=== PATIENT | female | born 1950 | race Caucasian/White ===

== ENCOUNTER → 2023-12-13 13:52 | Outpatient (REF) | payer MEDICARE, SELFPAY | LOC: HWRAD 13:52 | PROVIDERS: ATTENDING PHYSICIAN Family Medicine | DX: Z78.0 Asymptomatic menopausal state (principal); Z12.31 Encounter for screening mammogram for malignant neoplasm of breast | CPT/HCPCS: 77063; 77067; 77080 ==

== ENCOUNTER → 2023-12-21 09:53 | Outpatient (REF) | payer MEDICARE, SELFPAY | LOC: WDC 09:53 | PROVIDERS: ATTENDING PHYSICIAN Family Medicine | DX: R92.8 Other abnormal and inconclusive findings on diagnostic imaging of breast (principal) | CPT/HCPCS: 77065 ==

== ENCOUNTER → 2023-12-29 06:41 | Outpatient (REF) | payer MEDICARE, SELFPAY ==
--- NOTE | 2023-12-29 09:06 | OID.BR.INTR ---
[facility] Breast Navigator - Initial
- -
Date of Contact: 12/29/23
Met with patient. Patient given written information on navigator services and support services available at [facility]. Will follow up as needed per protocol.
== END ==
LOC: WDC 06:41
PROVIDERS: ATTENDING PHYSICIAN Family Medicine
DX: N63.20 Unspecified lump in the left breast, unspecified quadrant (principal); R92.8 Other abnormal and inconclusive findings on diagnostic imaging of breast; R92.1 Mammographic calcification found on diagnostic imaging of breast
CPT/HCPCS: 88305; 19081; 76098; A4648

== ENCOUNTER → 2024-10-18 09:49 | Outpatient (REF) | payer MEDICARE, SELFPAY | LOC: RCS 09:49 | PROVIDERS: ATTENDING PHYSICIAN Family Medicine | DX: R94.31 Abnormal electrocardiogram [ECG] [EKG] (principal); I10 Essential (primary) hypertension; E78.00 Pure hypercholesterolemia, unspecified; I36.1 Nonrheumatic tricuspid (valve) insufficiency; I35.8 Other nonrheumatic aortic valve disorders | CPT/HCPCS: 93017; 93350 ==

== ENCOUNTER 2024-10-28 09:37 | Emergency (ER) | payer MEDICARE, SELFPAY ==
[2024-10-28 09:39] VITALS: BP 175/92
--- NOTE | 2024-10-28 11:03 | ED.GENMED ---
History of Present Illness
<Dawna Mead, JEWELRY SALES COORDINATOR - Last Filed: 10/29/24 13:28>
General
Chief Complaint: Breathing Problem
Source: patient
Exam Limitations: none
Time Seen by Provider: 10/28/24 11:02
Nursing documentation reviewed up to this point in time: agreed with
History of Present Illness
History of Present Illness:
74-year-old female history of HTN presents for 'heaviness,' shortness of breath and general weakness she has been experiencing since 10/08. On 10/08 she developed a sharp pain up under her ribs (pointing to the epigastric area), EMS was called but the
pain went away so she declined transport to hospital. Since then, she states this feeling of heaviness, shortness of breath and weakness comes and goes. She states it is worse with activity. She states at this time the pressure is 3/10 and mid
chest, nonradiating.
She did have a stress echocardiogram last week 10/18. And was told there was no change from previous
She denies N/V/D/C.
Past History
<Dawna Mead, JEWELRY SALES COORDINATOR - Last Filed: 10/29/24 13:28>
Past History
ED Past Medical History: HTN, Hypercholesterolemia and Hypothyroidism
ED Past Surgical History: Gynecological and Other (Noncontributory)
Social History
Tobacco: Non-smoker
Alcohol: Occasional
Personal:
Living: with family
Employment: Not employed
Family History
Family History: Other (Noncontributory)
Review of Systems
<Dawna Mead, JEWELRY SALES COORDINATOR - Last Filed: 10/29/24 13:28>
Review of Systems
Allergies reviewed?: Yes
Constitutional: Reports fatigue; Denies fever
Respiratory: Reports other (feels short of breath at times, worse with exertion)
Cardiac: Reports chest pain (chest 'pressure' intermittent, worse with exertion. )
ABD/GI: Denies abdominal pain, nausea or vomiting
: Reports no symptoms
Musculoskeletal: Reports no symptoms
Skin: Reports no symptoms
Phy Exam
<Dawna Mead, JEWELRY SALES COORDINATOR - Last Filed: 10/29/24 13:28>
Physical Exam
Physical Exam:
GENERAL: No acute distress. A&Ox3.
CONSTITUTIONAL: Afebrile.
EYES: clear, conjunctivae normal
ENMT: moist mucus membranes, Pharynx nl
RESPIRATORY: Regular respirations, nonlabored, lungs clear.
CARDIOVASCULAR: Regular rate and rhythm, no murmurs, no rubs.
GI: Soft, nontender, normal BS
MUSCULOSKELETAL: Moves with ease. Well perfused.
SKIN: Warm, dry, pink
PSYCH: Normal mood and affect. Well kept, interactive and appropriate
NEUROLOGIC: Awake, alert and oriented. No focal neurological deficits
Scores
<Dawna Mead, JEWELRY SALES COORDINATOR - Last Filed: 10/29/24 13:28>
Heart Failure Risk
Heart Failure Risk Score: Not Applicable
Course
<Dawna Mead, JEWELRY SALES COORDINATOR - Last Filed: 10/29/24 13:28>
Orders/Labs/Results
Orders:
Orders
10/28/24 09:41
Electrocardiogram (*1) Urgent
Reason for Study: Shortness of Breath
EKG- Treatment ONCE
10/28/24 11:18
CR Chest - 2 Views Urgent
Comment:
Reason For Exam: chest pressure, SOB
10/28/24 11:29
Comprehensive Metabolic Panel Urgent
10/28/24 11:31
Complete Blood Count/With Diff Urgent
Troponin I Urgent
10/28/24 14:50
Troponin I Urgent
Abnormal Lab Results
10/28/24 10/28/24
11:29 11:31
MCH 31.1 H pg
(27.0-31.0)
Monocytes % 9.6 H %
(1.7-9.3)
Creatinine 0.5 L mg/dL
(0.6-1.0)
10/28/24 11:31
10/28/24 11:29
Vital Signs
Initial and Last Documented VS:
Initial Vital Signs
Temp Pulse Resp BP Pulse Ox
97.8 F 60 16 175/92 99
10/28/24 09:39 10/28/24 09:39 10/28/24 09:39 10/28/24 09:39 10/28/24 09:39
Last Documented Vital Signs
Temp Pulse Resp BP Pulse Ox
97.8 F 64 22 150/65 98
10/28/24 09:39 10/28/24 16:30 10/28/24 16:30 10/28/24 15:00 10/28/24 16:00
Brake Holder consulted with Physician
Brake Holder consulted with physician?: Yes
Name of Physician Consulted: Loul[facility]
<Oksana Jamil MD - Last Filed: 10/28/24 13:03>
Orders/Labs/Results
Orders:
Orders
10/28/24 09:41
Electrocardiogram (*1) Urgent
Reason for Study: Shortness of Breath
EKG- Treatment ONCE
10/28/24 11:18
CR Chest - 2 Views Urgent
Comment:
Reason For Exam: chest pressure, SOB
10/28/24 11:29
Comprehensive Metabolic Panel Urgent
10/28/24 11:31
Complete Blood Count/With Diff Urgent
Troponin I Urgent
10/28/24 14:50
Troponin I Urgent
Abnormal Lab Results
10/28/24 10/28/24
11:29 11:31
MCH 31.1 H pg
(27.0-31.0)
Monocytes % 9.6 H %
(1.7-9.3)
Creatinine 0.5 L mg/dL
(0.6-1.0)
10/28/24 11:31
10/28/24 11:29
Vital Signs
Initial and Last Documented VS:
Initial Vital Signs
Temp Pulse Resp BP Pulse Ox
97.8 F 60 16 175/92 99
10/28/24 09:39 10/28/24 09:39 10/28/24 09:39 10/28/24 09:39 10/28/24 09:39
Last Documented Vital Signs
Temp Pulse Resp BP Pulse Ox
97.8 F 64 22 150/65 98
10/28/24 09:39 10/28/24 16:30 10/28/24 16:30 10/28/24 15:00 10/28/24 16:00
<Dawna Mead NP - Last Filed: 10/29/24 13:28>
MDM/Problems Addressed
Differential Diagnosis Includes:
unstable angina, OR
MDM/Problems Addressed:
74-year-old female history of HTN presents for 'heaviness,' shortness of breath and general weakness she has been experiencing since 10/08. On 10/08 she developed a sharp pain up under her ribs (pointing to the epigastric area), EMS was called but the
pain went away so she declined transport to hospital. Since then, she states this feeling of heaviness, shortness of breath and weakness comes and goes. She states it is worse with activity. She states at this time the pressure is 3/10 and mid
chest, nonradiating.
She did have a stress echocardiogram last week 10/18. And was told there was no change from previous
She denies N/V/D/C.
EKG sinus bradycardia, HR 59 with PVCs
Reviewed Echo form 10/18: Report stated compared to her stress echo in 2019, her exercise tolerance has improved. No echocardiographic evidence of ischemia.
Pt states her sister just had bypass surgery, at bedside states he had a nuclear stress test at his elevator erector helper office and told it showed nothing worrisome and sent home, later same day he was called back and needed cardiac stent.
12:10 p.m.
CBC normal
CMP normal
Troponin normal
Chest x-ray NAD
Dr. Jamil in to evaluate. Requests second Troponin.
3:45 PM:
Second troponin is normal
Patient referred to [facility] hotline
Pt seems hesitant and anxious
Patient does express anxiety about flying to [place] in 2 weeks. She is wondering if she should not take an antianxiety medication. I informed her to call her PCP who can call in the prescription if needed
<Dawna Mead NP - Last Filed: 10/29/24 13:28>
*EKG
EKG Intrepretation Date: 10/28/24
Interpretation: abnormal
Heart Rate: 59
Rate: bradycardiac
Rhythm: sinus and PVC's
Baxley: normal axis
Interval: normal interval
QRS Pattern: normal QRS
Ischemia: no ischemia
*Critical Care Note
Total Time (30-74mins, 75-104mins- exclusive of procedures): Not Applicable
ED Attending Note
<Dawna Mead NP - Last Filed: 10/29/24 13:28>
-
Portions of this chart may have been created with voice recognition software.� Occasional wrong word or��sound alike� substitutions may have occurred due to the inherent limitations of voice recognition software.
<Oksana Jamil MD - Last Filed: 10/28/24 13:03>
ED Attending Note
Patient seen and examined by attending physician: Yes
I performed the substantive portion of visit, reviewed & personally made and approve the management plan that is documented in note by myself or KEO.: Yes
ED Attending Note:
74-year-old female history of hypertension hypercholesterolemia, recent stress echo which was reportedly unremarkable reports a 2-week history of intermittent chest 'heaviness associated with shortness of breath. Heaviness/shortness of breath is
unpredictable, lasts for up to hours at a time and then spontaneously resolves, not associated with diaphoresis, nausea, vomiting, back pain, neck pain, jaw pain, dizziness, or other complaints. Sometimes she says she feels like she needs to burp
with this heaviness. Symptoms can happen while sitting or with activity. Patient is very active. Physical exam unremarkable. First troponin within normal limits, ECG baseline without acute ischemia. We will check a second troponin, and if
within normal limits patient will be referred to the chest pain hotline
Discharge Plan
Departure
Patient Disposition: Home (Routine Discharge)
Date of Disposition: 10/28/24
Time of Disposition: 15:36
Patient with high blood pressure during this ER visit?: Yes
Condition: Good
Discharge Problem:
Atypical chest pain
Instructions: Acid reflux and GERD in adults, *[facility] Heart Failure Instructions
Prescriptions:
New
pantoprazole 40 mg tablet,delayed release (DR/EC)
40 mg PO DAILY Qty: 30 0RF
No Action
hydrocodone-acetaminophen 1 TABLET tablet
1 tab PO Q4HPRN PRN (Reason: pain) Qty: 15 0RF
Referrals:
Roseline Hay MD [Family Provider] -
Hill Henning MD [Active] - Keep scheduled appt
Activity Restrictions/Additional Instructions:
As we discussed, nothing worrisome in your workup here today.
I sent your information to the [place] cardiology group and someone from that group will call you Wednesday or Wednesday for appointment for a more thorough cardiac workup.
I sent a prescription to your pharmacy for Pantoprazole used to treat GERD. Take it daily and let the elevator erector helper know if it helped your symptoms.
Return here immediately if you develop worsening chest pain, or any symptoms that concern you.
Interventions
Interventions:
*Risk Screen - Suicide Last Done: 10/28/24 09:41
*General Assessment Last Done: 10/28/24 11:17
*Neglect/Abuse Screening Last Done: 10/28/24 09:41
*ED- Fall Risk Assessment Last Done: 10/28/24 11:17
*ED COVID-19 Vaccine History Last Done: 10/28/24 11:17
*Nursing Disposition Last Done: 10/28/24 16:32
ED- Cardiac Assessment Last Done: 10/28/24 11:11
ED- Pulmonary Assessment Last Done: 10/28/24 11:11
Discharge Date and Time
Discharge Date/Time: 10/28/24 16:33
Print Language: MACEDONIAN
[2024-10-28 11:17] VITALS: BMI 20.5
[2024-10-28 11:27] VITALS: BP 194/102
[2024-10-28 11:43] LABS: % Basophils 1.5 % (0-2); % Eosinophils 1.7 % (0-6); % Immature Granulocytes 0.2 % (0-0.5); % Lymphocytes 26.7 % (20.5-51.1); % Monocytes 9.6 % (1.7-9.3); % Neutrophils 60.3 % (42.2-75.2); Absolute Basophils 0.1 10^3/uL (0-0.2); Absolute Eosinophils 0.1 10^3/uL (0-0.7); Absolute Lymphocytes 1.6 10^3/uL (1.2-3.4); Absolute Monocytes 0.6 10^3/uL (0.1-0.6); Absolute Neutrophils 3.6 10^3/uL (1.4-6.5); Hematocrit 41.4 % (37.0-47.0); Hemoglobin 13.7 g/dL (12.0-16.0); Mean Corp Hgb Conc. 33.1 g/dL (33.0-37.0); Mean Corpuscular Hgb 31.1 pg (27.0-31.0); Mean Corpuscular Volume 93.9 fL (81.0-99.0); Mean Platelet Volume 9.8 fL (7.4-10.4); Nucleated Red Blood Cells % 0 %; Platelet Count 295 10^3/uL (130-400); Red Blood Cell Count 4.41 10^6/uL (4.20-5.40); Red Cell Dist. Width 12.7 % (11.5-14.5)
[2024-10-28 11:59] LABS: ALT (SGPT) 25 U/L (0-35); AST (SGOT) 33 U/L (14-36); Albumin 4.5 g/dl (3.5-5.0); Alkaline Phosphatase 46 U/L (38-126); Blood Urea Nitrogen 13 mg/dl (7-17); Calcium 9.7 mg/dl (8.4-10.2); Carbon Dioxide 27 mmol/L (22-30); Chloride 101 mmol/L (98-107); Estimated Creatinine Clearance 77 ml/min; Glucose 90 mg/dl (70-99); Potassium 4.3 mmol/L (3.5-5.1); Sodium 140 mmol/L (135-145); Total Bilirubin 0.8 mg/dl (0.2-1.3); Total Protein 7.6 g/dl (6.3-8.2); eGFR > 60.00
[2024-10-28 12:07] LABS: Troponin I < 0.012 ng/ml
[2024-10-28 12:20] VITALS: BP 157/68
[2024-10-28 13:00] VITALS: BP 181/69
[2024-10-28 15:00] VITALS: BP 150/65
[2024-10-28 15:20] LABS: Troponin I < 0.012 ng/ml
== END 2024-10-28 16:33 | disposition home or self-care (01) ==
LOC: EMR 09:37
PROVIDERS: Registered Nurse; EMERGENCY PHYSICIAN Emergency Medicine; FAMILY PHYSICIAN Family Medicine
DX: R07.89 Other chest pain (principal); I49.3 Ventricular premature depolarization; E78.00 Pure hypercholesterolemia, unspecified; E03.9 Hypothyroidism, unspecified; I10 Essential (primary) hypertension; Z95.5 Presence of coronary angioplasty implant and graft
CPT/HCPCS: 99284; 71046; 80053; 84484; 85025; 93005

== ENCOUNTER → 2024-12-29 14:39 | Outpatient (REF) | payer MEDICARE, SELFPAY | LOC: WDC 14:39 | PROVIDERS: ATTENDING PHYSICIAN Family Medicine | DX: Z12.31 Encounter for screening mammogram for malignant neoplasm of breast (principal) | CPT/HCPCS: 77063; 77067 ==